=== PATIENT | female | born 1995 | race Caucasian/White ===

== ENCOUNTER 2017-10-07 21:50 | Emergency (ER) | payer BC ==
[~2017-10-07] VITALS: Ht 170.2 cm; Wt 88.1 kg
[2017-10-07 21:58] VITALS: BP 138/72
[2017-10-07 22:03] VITALS: BP 138/72
--- NOTE | 2017-10-07 22:03 | NUR ---
MED PER PROTOCOAL GIVEN FOR FEVER. PT SENT TO LOBBY. URINE COLLECETED
[2017-10-07] MEDS ORDERED: ACETAMINOPHEN EXTRA STRENGTH 500 MG TAB ONE (22:10)
--- NOTE | 2017-10-08 01:05 | NUR ---
PATIENT AMBULATED TO OVERFLOW CHAIR 2
[2017-10-08 02:03] LABS: APPEARANCE,URINE CLOUDY (CLEAR); BILIRUBIN,URINE NEGATIVE (NEGATIVE); BLOOD, URINE TRACE-I (NEGATIVE); COLOR,URINE YELLOW (YELLOW); LEUKOCYTE ESTERASE ,URINE 3+ (NEGATIVE); NITRITE, URINE NEGATIVE (NEGATIVE); UGLUCOSE NEGATIVE (NEGATIVE)
--- NOTE | 2017-10-08 02:03 | NUR ---
22 Y/O F W/C/O FEVER/ HEADACHE/ LOWER BACK PAIN 7/10 X 1 DAY. NO MED HX. PT IS AAOX4, AMBULATORY, ACCOMPANIED BY FAMILY MEMBER.
--- NOTE | 2017-10-08 02:17 | NUR ---
TEMP 98.7 TEMPORAL, WITNESSED BY FAMILY MEMBER AT HER SIDE
[2017-10-08 02:27] LABS: RBC,URINE 0-5 (RARE) /HPF (0-5); WBC,URINE TOO MANY TO COUNT /HPF (0-5)
== END 2017-10-08 02:58 | disposition home or self-care (01) ==
LOC: MED 21:50
DX: R50.9 Fever, unspecified (principal); R51 Headache; M54.5 Low back pain
CPT/HCPCS: 36415; 81001; 81025; 87086; 87804; 99284